=== PATIENT | female | born 1935 | race Caucasian/White ===

== ENCOUNTER → 2017-12-23 | Outpatient (CLI) | payer MEDICARE | END | disposition home or self-care (01) | LOC: RADUSWWP 10:07 | PROVIDERS: ATTEND Internal Medicine | DX: M79.662 Pain in left lower leg (principal); M79.661 Pain in right lower leg | CPT/HCPCS: 93923 ==

== ENCOUNTER → 2019-06-15 | Outpatient (CLI) | payer MEDICARE ==
[2019-06-16 07:52] LABS: African American GFR (CKD) 52.6 (60.0-200.0); Anion Gap 13.2 mmol/L (4.00-12.00); Carbon Dioxide 22.8 mmol/L (21.6-31.8); Potassium 4.8 mmol/L (3.5-5.5)
[2019-06-16 07:54] LABS: Hemoglobin A1C 5.5 % (4.0-6.0)
== END | disposition home or self-care (01) ==
LOC: LABWHC1 14:31
PROVIDERS: ATTEND Internal Medicine
DX: E66.9 Obesity, unspecified (principal); I12.9 Hypertensive chronic kidney disease with stage 1 through stage 4 chronic kidney disease, or unspecified chronic kidney disease; N18.9 Chronic kidney disease, unspecified
CPT/HCPCS: 36415; 80051; 82565; 83036; 84520

== ENCOUNTER 2019-12-28 15:31 | Emergency (ER) | payer MEDICARE ==
[2019-12-28 15:37] VITALS: RESP 16; TEMP 98.7
--- NOTE | 2019-12-28 15:51 | ED ---
General Adult HPI - General Chief complaint: Recheck/Abnormal Lab/Rx Stated complaint: Stroke Symptoms, Edema in feet Time Seen by Provider: 12/28/19 15:32 Source: EMS Mode of arrival: EMS Limitations: physical limitation - History of Present Illness Initial comments: Dictation was produced using [employer] dictation software. please excuse any grammatical, word or spelling errors. This patient was cared for during a federal and state declared state of emergency secondary to Covid 19 Chief Complaint: 84-year-old female past medical history of hypertension, reflux presents with slowed speech and lethargy History of Present Illness: 84-year-old female she has no significant comorbidities. She is brought in by EMS. EMS was called because HER-2 sons were concerned she is having a stroke. She woke this morning and appeared to be more lethargic than usual. Patient does not have a history of lethargy. Patient requires significant assistance with performance of daily living. They noted that her slowed speech was apparent upon waking this morning. She was last normal yesterday. She does not have any history of strokes. Denies any numbness saline paresthesias. Sons note that patient is not confused or slurring her speech. The ROS documented in this emergency department record has been reviewed and confirmed by me. Those systems with pertinent positive or negative responses have been documented in the HPI. All other systems are other negative and/or noncontributory. PHYSICAL EXAM: General Impression: Alert and oriented x4/4, not in acute distress HEENT: Normocephalic atraumatic, extra-ocular movements intact, pupils equal and reactive to light bilaterally, mucous membranes moist. Cardiovascular: Heart regular rate and rhythm Chest: Able to complete full sentences, no retractions, no tachypnea Abdomen: abdomen soft, non-tender, non-distended, no organomegaly Musculoskeletal: Pulses present and equal in all extremities, no peripheral edema Motor: no focal deficits noted Neurological: CN II-XII grossly intact, no focal motor or sensory deficits noted, NIH 0 Skin: Intact with no visualized rashes Psych: Normal affect and mood ED course: 84-year-old female presents with generalized weakness upon waking this morning. Signs upon arrival are within acceptable limits. Patient has no signs or symptoms to suggest CVA. NIH is 0. Laboratory evaluation obtained. Hemoglobin was 17.1 concerning for hem oconcentration. Metabolic panel is unremarkable. Computed tomography scan of the brain was obtained showing masslike area measuring 3.8 cm and there are proximal right temporal lobe with significant vasogenic edema. There is also 0.8 cm midline shift towards the left. Patient reevaluated at bedside. She appears to be in stable medical condition. She denies any headache. Patient given 10 mg of IV Decadron. CT imaging results were discussed with patient and family member. We'll plan to have patient transferred to [facility]. Patient and family are agreeable. Discussed patient case with Dr. Walter at [facility]. He reports he will contact neurosurgery noted to confirm that they will accept patient for ER to ER transfer. Discussed patient case with Dr. Walter who is willing to accept the ER transfer. EKG interpretation: Ventricular rate 67, sinus rhythm, ME interval 166, QRS 90, QTC 424. No ME prolongation, no QTC prolongation, no ST or T-wave changes noted. No old EKG for comparison. Overall, this EKG is unremarkable Review of Systems ROS Statement: Those systems with pertinent positive or pertinent negative responses have been documented in the HPI. ROS Other: All systems not noted in ROS Statement are negative. Past Medical History Past Medical History: No Reported History History of Any Multi-Drug Resistant Organisms: None Reported Past Surgical History: No Surgical Hx Reported Past Psychological History: No Psychological Hx Reported Smoking Status: Never smoker Past Alcohol Use History: None Reported Past Drug Use History: None Reported General Exam Limitations: physical limitation Course Vital Signs 12/28/19 12/28/19 15:33 16:56 Temperature 98.7 F Pulse Rate 65 81 Respiratory 16 16 Rate Blood Pressure 137/98 132/76 O2 Sat by Pulse 96 98 Oximetry Medical Decision Making - Lab Data Result diagrams: 12/28/19 16:00 12/28/19 16:00 Lab Results 12/28/19 12/28/19 Range/Units 16:00 16:00 WBC 9.1 (3.8-10.6) k/uL RBC 5.92 H (3.80-5.40) m/uL Hgb 17.1 H (11.4-16.0) gm/dL Hct 53.5 H (34.0-46.0) % MCV 90.4 (80.0-100.0) fL MCH 28.8 (25.0-35.0) pg MCHC 31.9 (31.0-37.0) g/dL RDW 13.4 (11.5-15.5) % Plt Count 222 (150-450) k/uL Neutrophils % 76 % Lymphocytes % 11 % Monocytes % 10 % Eosinophils % 1 % Basophils % 1 % Neutrophils # 6.9 (1.3-7.7) k/uL Lymphocytes # 1.0 (1.0-4.8) k/uL Monocytes # 0.9 (0-1.0) k/uL Eosinophils # 0.1 (0-0.7) k/uL Basophils # 0.0 (0-0.2) k/uL Sodium 133 L (137-145) mmol/L Potassium 4.5 (3.5-5.1) mmol/L Chloride 97 L (98-107) mmol/L Carbon Dioxide 27 (22-30) mmol/L Anion Gap 9 mmol/L BUN 14 (7-17) mg/dL Creatinine 0.92 (0.52-1.04) mg/dL Est GFR (CKD-EPI)AfAm 65 (>60 ml/min/1.73 sqM) Est GFR (CKD-EPI)NonAf 57 (>60 ml/min/1.73 sqM) Glucose 102 H (74-99) mg/dL Calcium 9.8 (8.4-10.2) mg/dL Magnesium 2.1 (1.6-2.3) mg/dL Disposition Clinical Impression: Intracranial mass Disposition: OTHER INSTITUTION NOT DEFINED Condition: Critical Referrals: Sima Nicole MD [Primary Care Provider] - 1-2 days Time of Disposition: 17:34 - Out of Hospital Transfer - Req. Specs Out of Hospital Transfer - Requested Specifics: Other Emergency Center ([facility])
[2019-12-28 16:26] LABS: Calcium 9.8 mg/dL (8.4-10.2); Magnesium 2.1 mg/dL (1.6-2.3)
[2019-12-28 16:27] LABS: Potassium 4.5 mmol/L (3.5-5.1)
[2019-12-28 16:30] LABS: Basophils % (A) 1 %; Eosinophils # (A) 0.1 k/uL (0-0.7); Eosinophils % (A) 1 %; HCT 53.5 % (34.0-46.0); HGB 17.1 gm/dL (11.4-16.0); Lymphocytes % (A) 11 %; MCH 28.8 pg (25.0-35.0); MCHC 31.9 g/dL (31.0-37.0); MCV 90.4 fL (80.0-100.0); Monocytes # (A) 0.9 k/uL (0-1.0); Monocytes % (A) 10 %; Neutrophils # (A) 6.9 k/uL (1.3-7.7); Neutrophils % (A) 76 %; Platelet Count 222 k/uL (150-450); RBC 5.92 m/uL (3.80-5.40); RDW 13.4 % (11.5-15.5); WBC 9.1 k/uL (3.8-10.6)
--- NOTE | 2019-12-28 16:40 | CT ---
EXAMINATION TYPE: CT brain wo con DATE OF EXAM: 12/28/2019 COMPARISON: None INDICATION: ams DLP: 1158.4 mGycm, Automated exposure control for dose reduction was used. CONTRAST: None CT of the brain is performed utilizing 3 mm thick sections through the posterior fossa and 3 mm thick sections through the remaining calvarium. Study is performed within 24 hours of arrival to the hosp ital. No abnormal hyperdensity is present to suggest an acute intracranial hemorrhage. There is a approximately 3.8 cm masslike area within the right temporal lobe. Significant vasogenic e rose mary is present extending into the trilobar region. There is midline shift of 0.78 cm. There is compr ession of the lateral ventricles. Third ventricle is patent and shifted to the left. Fourth ventricle is midline and patent. Quadrigeminal plate and ambient cisterns appear normal No acute infarcts are evident. No hydrocephalus is present. Paranasal sinuses and mastoid air cells within the [id number] are clear. IMPRESSIONS: 1. Masslike area estimated to measure 3.8 cm in the proximal right temporal lobe with significant v asogenic edema extending into the trilobar region and basal ganglion contributing to midline shift of 0.8 cm towards the left. Report was called to emergency room physician by Dr. Sharp by telephone 1 008 hours 12/28/2019.
[2019-12-28] MEDS ORDERED: DEXAMETHASONE SOD PHOSPHATE 10 MG/ML 1 ML VIAL IV STA (16:46)
[2019-12-28 17:37] LABS: Appearance,Urine Clear (Clear); Bilirubin,Urine Negative (Negative); Blood,Urine Negative (Negative); Color,Urine Yellow; Glucose,Urine (UA) Negative (Negative); Ketones,Urine Trace (Negative); Leukocyte Esterase,Urine Negative (Negative); Nitrite,Urine Negative (Negative); PH, Urine 5.5 (5.0-8.0); Protein,Urine Trace (Negative); Specific Gravity,Urine 1.021 (1.001-1.035)
[2019-12-28 18:07] VITALS: BP 132/79; PULSE 86
== END 2019-12-28 18:07 | disposition other institution (70) ==
LOC: EC 15:31
DX: R90.0 Intracranial space-occupying lesion found on diagnostic imaging of central nervous system (principal); R53.1 Weakness; R60.0 Localized edema
CPT/HCPCS: 36415; 93005; 80048; 83735; 85025; 81003; 70450; 99285; 96374; J1100

== ENCOUNTER 2020-01-14 23:31 | Emergency (ER) | payer MEDICARE ==
[2020-01-14] MEDS ORDERED: ONDANSETRON 4 MG/2 ML VIAL IVP STA (23:34)
[2020-01-14] MEDS ORDERED: SODIUM CHLORIDE 0.9% 500 ML 500 ML IV STA (23:34)
[2020-01-14] MEDS ORDERED: PANTOPRAZOLE 40 MG/10 ML VIAL IVP STA (23:35)
[2020-01-15] MEDS ORDERED: LORazepam 2 MG/ML INJ IM STA (00:15)
--- NOTE | 2020-01-15 00:18 | ED ---
GI Bleed HPI - General Chief complaint: GI Bleed Stated complaint: GI Bleed Time Seen by Provider: 01/14/20 23:34 Source: patient, EMS, RN notes reviewed, old records reviewed Mode of arrival: EMS Limitations: altered mental status, physical limitation - History of Present Illness Initial comments: This is an 84-year-old female who is a poor historian history obtained by EMS patient is a complex recent medical history patient was postop intracranial s urgery for tumor. Patient was at [facility] yesterday surgery was Friday. Patient's been having diarrhea nausea vomiting and feeling weak. No reported fevers patient here in the ER just complains of some generalized abdominal pain with mild confusion MD complaint: other (Patient has overall confusion) -: days(s) Radiation: none Severity scale (1-10): 4 (Weakness) Quality: painless Consistency: constant Improves with: none Worsens with: vomiting Associated Symptoms: nausea, loss of appetite, shortness of breath, weakness - Related Data Allergies Allergy/AdvReac Type Severity Reaction Status Date / Time No Known Allergies Allergy Verified 01/14/20 23:38 Review of Systems ROS Statement: Those systems with pertinent positive or pertinent negative responses have been documented in the HPI. ROS Other: All systems not noted in ROS Statement are negative. Past Medical History Past Medical History: No Reported History, COPD, GERD/Reflux Additional Past Medical History / Comment(s): brain tumor History of Any Multi-Drug Resistant Organisms: None Reported Past Surgical History: No Surgical Hx Reported Additional Past Surgical History / Comment(s): crainotomy Past Psychological History: No Psychological Hx Reported Smoking Status: Never smoker Past Alcohol Use History: None Reported Past Drug Use History: None Reported General Exam Limitations: altered mental status, physical limitation General appearance: alert, lethargic, obese Head exam: Present: normocephalic, normal inspection. Absent: atraumatic (well healing insicion CDI) Eye exam: Present: normal appearance, PERRL, EOMI. Absent: scleral icterus, conjunctival injection, periorbital swelling ENT exam: Present: normal exam, mucous membranes dry Neck exam: Present: normal inspection. Absent: tenderness, meningismus, lymphadenopathy Respiratory exam: Present: decreased breath sounds, prolonged expiratory. Absent: respiratory distress, wheezes, rales, rhonchi, stridor Cardiovascular Exam: Present: regular rate, normal rhythm, irregular rhythm, normal heart sounds. Absent: systolic murmur, diastolic murmur, rubs, gallop, clicks GI/Abdominal exam: Present: soft, normal bowel sounds. Absent: distended, tenderness, guarding, rebound, rigid Extremities exam: Present: normal inspection, full ROM, normal capillary refill. Absent: tenderness, pedal edema, joint swelling, calf tenderness Back exam: Present: normal inspection Neurological exam: Present: alert, oriented X3, CN II-XII intact Psychiatric exam: Present: normal affect, normal mood Skin exam: Present: warm, dry, intact, normal color. Absent: rash Course Vital Signs 01/14/20 01/14/20 01/15/20 23:33 23:50 00:05 Temperature 97.4 F L 97.7 F Pulse Rate 62 72 68 Respiratory 16 16 15 Rate Blood Pressure 113/60 129/77 121/57 O2 Sat by Pulse 95 96 97 Oximetry 01/15/20 01/15/20 01/15/20 00:35 01:00 01:30 Temperature Pulse Rate 68 73 63 Respiratory 14 16 14 Rate Blood Pressure 115/62 141/49 131/89 O2 Sat by Pulse 91 L 96 95 Oximetry 01/15/20 02:00 Temperature 97.8 F Pulse Rate 84 Respiratory 15 Rate Blood Pressure 126/86 O2 Sat by Pulse 96 Oximetry - Reevaluation(s) Reevaluation #1: 01/15/20 02:39 Medical records reviewed including lab tests from yesterday Reevaluation #2: 01/15/20 02:40 Patient no significant rust for a stress vital signs remaining normal and stable in the ER - Consultations Consultation #1: Spoke with Dr. Tomlinson will prefer transfer to operating hospital Consultation #2: Spoke with [facility] were acceptable for transfer Procedures - Central Line Placement Right IJ Consent Obtained: verbal consent Patient Placed on Monitor/Pulse Ox: Yes MD Prep: mask, gown, gloves Central Line Prep: Povidone-Iodine 1% Local Anesthesia Used: Lidocaine 1% Ultrasound Used for Placement: Yes Central Line Lumen Inserted: triple Bloods Obtained for Lab: Yes Central Line Position: good blood return, all ports aspirated, flushed, capped, sutured in place with 3-0 nylon Dressing Applied: Tegaderm Post Procedure X-Ray: tip of catheter in good position Patient Tolerated Procedure: well Complications: none Medical Decision Making - Medical Decision Making 84 female DF for evaluation patient presents with weakness patient is 5 days postoperative cranial tumor. Craniotomy. Patient has pneumonia with significantly elevated white count. Patient will be admitted for postop infection pneumonia and sepsis - Lab Data Result diagrams: 01/15/20 00:55 01/15/20 00:55 Lab Results 01/15/20 01/15/20 01/15/20 Range/Units 00:55 00:55 00:55 WBC 36.0 H (3.8-10.6) k/uL RBC 5.52 H (3.80-5.40) m/uL Hgb 16.3 H (11.4-16.0) gm/dL Hct 49.7 H (34.0-46.0) % MCV 90.1 (80.0-100.0) fL MCH 29.5 (25.0-35.0) pg MCHC 32.7 (31.0-37.0) g/dL RDW 13.7 (11.5-15.5) % Plt Count 182 (150-450) k/uL Neutrophils % 96 % Lymphocytes % 1 % Monocytes % 3 % Eosinophils % 0 % Basophils % 0 % Neutrophils # 34.6 H (1.3-7.7) k/uL Lymphocytes # 0.2 L (1.0-4.8) k/uL Monocytes # 1.1 H (0-1.0) k/uL Eosinophils # 0.1 (0-0.7) k/uL Basophils # 0.0 (0-0.2) k/uL PT 10.4 (9.0-12.0) sec INR 1.0 (<1.2) APTT 27.7 (22.0-30.0) sec Sodium 131 L (137-145) mmol/L Potassium 4.4 (3.5-5.1) mmol/L Chloride 96 L (98-107) mmol/L Carbon Dioxide 23 (22-30) mmol/L Anion Gap 12 mmol/L BUN 71 H (7-17) mg/dL Creatinine 1.55 H (0.52-1.04) mg/dL Est GFR (CKD-EPI)AfAm 35 (>60 ml/min/1.73 sqM) Est GFR (CKD-EPI)NonAf 30 (>60 ml/min/1.73 sqM) Glucose 184 H (74-99) mg/dL Plasma Lactic Acid Dontae (0.7-2.0) mmol/L Calcium 9.8 (8.4-10.2) mg/dL Phosphorus 4.7 H (2.5-4.5) mg/dL Magnesium 2.6 H (1.6-2.3) mg/dL Total Bilirubin 1.1 (0.2-1.3) mg/dL AST 22 (14-36) U/L ALT 15 (4-34) U/L Alkaline Phosphatase 94 (38-126) U/L Troponin I (0.000-0.034) ng/mL Total Protein 5.3 L (6.3-8.2) g/dL Albumin 2.9 L (3.5-5.0) g/dL Blood Type Blood Type Recheck Bld Type Recheck Status Antibody Screen Spec Expiration Date 01/15/20 01/15/20 01/15/20 Range/Units 00:55 00:55 00:55 WBC (3.8-10.6) k/uL RBC (3.80-5.40) m/uL Hgb (11.4-16.0) gm/dL Hct (34.0-46.0) % MCV (80.0-100.0) fL MCH (25.0-35.0) pg MCHC (31.0-37.0) g/dL RDW (11.5-15.5) % Plt Count (150-450) k/uL Neutrophils % % Lymphocytes % % Monocytes % % Eosinophils % % Basophils % % Neutrophils # (1.3-7.7) k/uL Lymphocytes # (1.0-4.8) k/uL Monocytes # (0-1.0) k/uL Eosinophils # (0-0.7) k/uL Basophils # (0-0.2) k/uL PT (9.0-12.0) sec INR (<1.2) APTT (22.0-30.0) sec Sodium (137-145) mmol/L Potassium (3.5-5.1) mmol/L Chloride (98-107) mmol/L Carbon Dioxide (22-30) mmol/L Anion Gap mmol/L BUN (7-17) mg/dL Creatinine (0.52-1.04) mg/dL Est GFR (CKD-EPI)AfAm (>60 ml/min/1.73 sqM) Est GFR (CKD-EPI)NonAf (>60 ml/min/1.73 sqM) Glucose (74-99) mg/dL Plasma Lactic Acid Dontae 1.4 (0.7-2.0) mmol/L Calcium (8.4-10.2) mg/dL Phosphorus (2.5-4.5) mg/dL Magnesium (1.6-2.3) mg/dL Total Bilirubin (0.2-1.3) mg/dL AST (14-36) U/L ALT (4-34) U/L Alkaline Phosphatase (38-126) U/L Troponin I <0.012 (0.000-0.034) ng/mL Total Protein (6.3-8.2) g/dL Albumin (3.5-5.0) g/dL Blood Type O Positive Blood Type Recheck No Previous Record Bld Type Recheck Status CABO Indicated Antibody Screen NEGATIVE Spec Expiration Date 01/18/2020 6006 - EKG Data -: EKG Interpreted by Me (KEG shows NSR 79 WI 124 QRS 106 QTc 405) - Radiology Data Radiology results: report reviewed (CT brain is consistent with stop surgery changes, chest x-ray and abdominal series x-ray does show pneumonia), image reviewed Critical Care Time Critical Care Time: Yes Total Critical Care Time: 31 Disposition Clinical Impression: Colitis, Diarrhea, Leukocytosis, Nosocomial pneumonia, Postoperative sepsis Narrative: postOp Brain Tumor Disposition: OTHER INSTITUTION NOT DEFINED Condition: Serious Is patient prescribed a controlled substance at d/c from ED?: No Referrals: Murtaza Rios DO [Primary Care Provider] - 1-2 days - Out of Hospital Transfer - Req. Specs Out of Hospital Transfer - Requested Specifics: Other Emergency Center ([facility]
--- NOTE | 2020-01-15 01:36 | CT ---
EXAMINATION TYPE: CT brain wo con DATE OF EXAM: 01/15/2020 COMPARISON: 12/28/2019 HISTORY: AMS CT DLP: 1102.4 mGycm Automated exposure control for dose reduction was used. There is right temporal craniotomy defect. There is postsurgical changes with hypodensity in the righ t temporal lobe and air bubbles. There is no midline shift. There is no sign of intracranial hemorrha ge. There is no hydrocephalus. IMPRESSION: Postsurgical changes with pneumocephalus and large 6 x 4 cm area of edema in the right temporal lobe. There is decreased mass effect upon the right lateral ventricle compared to last exam before the joão rosendo. There is no significant change of the white matter edema around the mass compared to preoperati ve exam.
--- NOTE | 2020-01-15 01:37 | XR ---
EXAMINATION TYPE: XR abdomen acute w cxr DATE OF EXAM: 01/15/2020 COMPARISON: NONE HISTORY: Abdominal pain TECHNIQUE: 4 views FINDINGS: Heart is enlarged. There is left shoulder prosthesis. There is right central venous cathete r with tip in the right atrium. There is no heart failure. There is blunting left costophrenic angle. There is no sign of intestinal obstruction or pneumoperitoneum. Fecal pattern is normal. There are mendez rgical clips in the right side of the abdomen. There are no pathologic calcifications over the kidney s. IMPRESSION: Nonacute abdomen. Cardiomegaly with left pleural effusion. No heart failure seen. Left lower lobe pneumonia is possible .
[2020-01-15 01:39] LABS: Basophils % (A) 0 %; Eosinophils # (A) 0.1 k/uL (0-0.7); Eosinophils % (A) 0 %; HCT 49.7 % (34.0-46.0); HGB 16.3 gm/dL (11.4-16.0); Lymphocytes # (A) 0.2 k/uL (1.0-4.8); Lymphocytes % (A) 1 %; MCH 29.5 pg (25.0-35.0); MCHC 32.7 g/dL (31.0-37.0); MCV 90.1 fL (80.0-100.0); Mean Platelet Volume 9.2; Monocytes # (A) 1.1 k/uL (0-1.0); Monocytes % (A) 3 %; Neutrophils # (A) 34.6 k/uL (1.3-7.7); Neutrophils % (A) 96 %; Platelet Count 182 k/uL (150-450); RBC 5.52 m/uL (3.80-5.40); RDW 13.7 % (11.5-15.5)
[2020-01-15] MEDS ORDERED: LEVOFLOXACIN 750MG-D5W PMX 750 MG in DEXTROSE/WATER 1 150ML.BAG IVPB STA (01:43)
[2020-01-15] MEDS ORDERED: PIPERACILLIN-TAZOBACTAM 3.375 GM in SODIUM CHLORIDE 0.9% 100 ML IVPB STA (01:43)
[2020-01-15] MEDS ORDERED: SODIUM CHLORIDE 0.9% 1,000 ML IV SCH (01:45)
[2020-01-15] MEDS ORDERED: LEVOFLOXACIN 750MG-D5W PMX 750 MG in DEXTROSE/WATER 1 150ML.BAG IVPB ONE (01:49)
[2020-01-15 01:56] LABS: Partial Thromboplastin Time 27.7 sec (22.0-30.0); Prothrombin Time 10.4 sec (9.0-12.0)
[2020-01-15 02:10] LABS: Albumin 2.9 g/dL (3.5-5.0); Calcium 9.8 mg/dL (8.4-10.2); Magnesium 2.6 mg/dL (1.6-2.3); Phosphorus 4.7 mg/dL (2.5-4.5); Potassium 4.4 mmol/L (3.5-5.1); Total Bilirubin 1.1 mg/dL (0.2-1.3); Total Protein 5.3 g/dL (6.3-8.2)
[2020-01-15] MEDS: SODIUM CHLORIDE 0.9% 500 ML 500 ML IV SCH (02:30)
[2020-01-15 03:20] VITALS: BP 108/52; PULSE 72; RESP 15; TEMP 97.7
[2020-01-15] MEDS ORDERED: PIPERACILLIN-TAZOBACTAM 3.375 GM in SODIUM CHLORIDE 0.9% 100 ML IVPB SCH (08:00)
[2020-01-15] MEDS ORDERED: ENOXAPARIN 40 MG/0.4 ML SYRINGE SQ SCH (09:00)
[2020-01-15] MEDS ORDERED: PANTOPRAZOLE 40 MG/10 ML VIAL IV SCH (09:00)
[2020-01-15] MEDS ORDERED: LEVOFLOXACIN 750MG-D5W PMX 750 MG in DEXTROSE/WATER 1 150ML.BAG IVPB SCH (23:00)
== END 2020-01-15 03:46 | disposition other institution (70) ==
LOC: EC 23:31
DX: K52.9 Noninfective gastroenteritis and colitis, unspecified (principal); A41.9 Sepsis, unspecified organism; T81.44XA Sepsis following a procedure, initial encounter; J18.9 Pneumonia, unspecified organism; D72.829 Elevated white blood cell count, unspecified; Z85.841 Personal history of malignant neoplasm of brain; Y95 Nosocomial condition
CPT/HCPCS: 36415; 93005; 86900; 86901; 80053; 83605; 83735; 84100; 84484; 85025; 85610; 85730; 86850; 87040; 87324; 87045; 87046; 74022; 70450; 99291; 36556; 96365; 96368; 96375 ×2; 96372; J2543; J2060; J2405; J1956; C9113